=== PATIENT | male | born 1995 | race Caucasian/White ===

== ENCOUNTER 2017-06-11 10:02 | Emergency (ER) | payer SELFPAY | END 2017-06-11 11:44 | disposition home or self-care (01) | PROVIDERS: Emergency Provider Emergency Medicine; Family Provider Emergency Medicine; Visit Provider Emergency Medicine | DX: S00.83XA Contusion of other part of head, initial encounter (principal); S00.03XA Contusion of scalp, initial encounter; S16.1XXA Strain of muscle, fascia and tendon at neck level, initial encounter; F84.0 Autistic disorder; F79 Unspecified intellectual disabilities; W01.0XXA Fall on same level from slipping, tripping and stumbling without subsequent striking against object, initial encounter; Y92.199 Unspecified place in other specified residential institution as the place of occurrence of the external cause | CPT/HCPCS: 70450; 72125; 99282 ==

== ENCOUNTER 2017-06-22 09:52 | Emergency (ER) | payer BC, SELFPAY ==
[2017-06-22 09:54] VITALS: BP 127/72; PULSE 96; RESP 18; TEMP 36.8; O2SAT 99; BMI 22.4
--- NOTE | 2017-06-22 10:09 | HMH.EDGENADL ---
ED Disposition Clinical Impression: Autism Syncope Qualifiers: Syncope type: unspecified Qualified Code(s): R55 - Syncope and collapse Disposition: Home, Self-Care Condition on Discharge: Good Instructions: How to Prevent Falls Additional Instructions: Keep appointment with Neurology as previously scheduled to rule out seizure disorder Time of Disposition: 11:39 - Critical Care Critical Care Time: No Attestation: On , the high probability of a clinically significant, sudden or life threatening deterioration of the following system(s) required my full and direct attention, intervention and personal management. The time I documented below is in addition to time spent performing reported procedures but includes the following listed in this critical care notation. Medical Decision Making Vital Signs: 06/22/17 09:54 Temperature 98.2 F Temperature Source Oral Pulse Rate [Right Radial] 96 H Respiratory Rate 18 Blood Pressure [Right Arm] 127/72 Blood Pressure Mean [Right Arm] 90 Blood Pressure Source [Right Arm] Automatic Cuff Blood Pressure Position [Right Arm] Sitting 02 Sat by Pulse Oximetry 99 Oxygen Delivery Method Room Air - Lab Data Lab Results 06/22/17 10:33: WBC 5.5, RBC 4.46 L, Hgb 13.9 L, Hct 41.9 L, MCV 93.9, MCH 31.1, MCHC 33.2, RDW 15.2, Plt Count 190, MPV 8.9, Neut % (Auto) 69.5, Lymph % (Auto) 21.3, [place] % (Auto) 6.4, Eos % (Auto) 1.9, Baso % (Auto) 0.8, Neut # (Auto) 3.8, Lymph # (Auto) 1.2, [place] # (Auto) 0.4, Eos # (Auto) 0.1, Baso # (Auto) 0.1 06/22/17 10:33: Sodium 140, Potassium 4.5, Chloride 104, Carbon Dioxide 27, Anion Gap 13.5, BUN 11, Creatinine 0.90, Estimated Creat Clear 139, Estimated GFR > 60, Est GFR ( Amer) > 60, Glucose 73 L, Calcium 8.7, Total Bilirubin 0.9, AST 24, ALT 48, Alkaline Phosphatase 104, Total Creatine Kinase 60, Total Protein 6.4, Albumin 3.4, Globulin 3.0, Albumin/Globulin Ratio 1.1 Result diagrams: 06/22/17 10:33 06/22/17 10:33 - Joshua Inquiry Pt receiving controlled substance: No Joshua was queried for this patient: No General Adult HPI - General Chief complaint: Fall Stated complaint: fall Time Seen by Provider: 06/22/17 10:09 Mode of Arrival: EMS Source of Information: EMS (and report from [facility]) Limitations: Pt has history of Autism and is scheduled to be seen by Neurology in another week or two to rule out seizure disorder Description of Symptoms (Recalled from ER Triage Doc. by RN): [facility] just [facility] back eyes rolled back in head , and he jerked for approx 30 sec and drooled - History of Present Illness HPI narrative: Pt had an episode at [facility] where he is a resident where he reportedly fell, eyes rolled back and he jerked all over. He was here about a week or two ago for the same and had a CT of Head which was negative and he has an appointment with a Neurologist to rule out seizure disorder. He does appear to be a little post ictal at this time as he is subdued and he responds by repeating almost everything you say to him. He had no incontinence of urine or stool Onset (ago): hour(s) Location: head Radiation: non-radiation Severity: mild Severity scale (1-10): 2 Consistency: now resolved Exacerbating factors: none Associated symptoms: confusion, other (eyes rolled back and he jerked all over but no incontinence of urine or stool) - Related Data Home Medications Medication Instructions Recorded Confirmed No Known Home Medications [No 06/22/17 06/22/17 Known Home Medications] Allergies Allergy/AdvReac Type Severity Reaction Status Date / Time No Known Allergies Allergy Verified 06/22/17 10:06 [facility] History I have reviewed the patient's past medical history: Yes Medical History: Denies:: Diabetes Mellitus Type 1 - *Social History Smoking Status: Never smoker (patient has Autism) Alcohol Intake: never - Psychiatric History Expresses thoughts of harming self/others: None Suic
--- NOTE | 2017-06-22 10:16 | ED_ITS ---
ED Disposition Clinical Impression: Autism Syncope Qualifiers: Syncope type: unspecified Qualified Code(s): R55 - Syncope and collapse Disposition: Home, Self-Care Condition on Discharge: Good Instructions: How to Prevent Falls Additional Instructions: Keep appointment with Neurology as previously scheduled to rule out seizure disorder Time of Disposition: 11:39 - Critical Care Critical Care Time: No Attestation: On , the high probability of a clinically significant, sudden or life threatening deterioration of the following system(s) required my full and direct attention, intervention and personal management. The time I documented below is in addition to time spent performing reported procedures but includes the following listed in this critical care notation. Medical Decision Making Vital Signs: 06/22/17 09:54 Temperature 98.2 F Temperature Source Oral Pulse Rate [Right Radial] 96 H Respiratory Rate 18 Blood Pressure [Right Arm] 127/72 Blood Pressure Mean [Right Arm] 90 Blood Pressure Source [Right Arm] Automatic Cuff Blood Pressure Position [Right Arm] Sitting 02 Sat by Pulse Oximetry 99 Oxygen Delivery Method Room Air - Lab Data Lab Results 06/22/17 10:33: WBC 5.5, RBC 4.46 L, Hgb 13.9 L, Hct 41.9 L, MCV 93.9, MCH 31.1 , MCHC 33.2, RDW 15.2, Plt Count 190, MPV 8.9, Neut % (Auto) 69.5, Lymph % (Auto ) 21.3, [place] % (Auto) 6.4, Eos % (Auto) 1.9, Baso % (Auto) 0.8, Neut # (Auto) 3.8, Lymph # (Auto) 1.2, [place] # (Auto) 0.4, Eos # (Auto) 0.1, Baso # (Auto) 0.1 06/22/17 10:33: Sodium 140, Potassium 4.5, Chloride 104, Carbon Dioxide 27, Anion Gap 13.5, BUN 11, Creatinine 0.90, Estimated Creat Clear 139, Estimated GFR > 60, Est GFR ( Amer) > 60, Glucose 73 L, Calcium 8.7, Total Bilirubin 0.9, AST 24, ALT 48, Alkaline Phosphatase 104, Total Creatine Kinase 60, Total Protein 6.4, Albumin 3.4, Globulin 3.0, Albumin/Globulin Ratio 1.1 Result diagrams: 06/22/17 10:33 06/22/17 10:33 - Joshua Inquiry Pt receiving controlled substance: No Joshua was queried for this patient: No General Adult HPI - General Chief complaint: Fall Stated complaint: fall Time Seen by Provider: 06/22/17 10:09 Mode of Arrival: EMS Source of Information: EMS (and report from [facility]) Limitations: Pt has history of Autism and is scheduled to be seen by Neurology in another week or two to rule out seizure disorder Description of Symptoms (Recalled from ER Triage Doc. by RN): [facility] states he just fell back eyes rolled back in head , and he jerked for approx 30 sec and drooled - History of Present Illness HPI narrative: Pt had an episode at [facility] where he is a resident where he reportedly fell , eyes rolled back and he jerked all over. He was here about a week or two ago for the same and had a CT of Head which was negative and he has an appointment with a Neurologist to rule out seizure disorder. He does appear to be a little post ictal at this time as he is subdued and he responds by repeating almost everything you say to him. He had no incontinence of urine or stool Onset (ago): hour(s) Location: head Radiation: non-radiation Severity: mild Severity scale (1-10): 2 Consistency: now resolved Exacerbating factors: none Associated symptoms: confusion, other (eyes rolled back and he jerked all over but no incontinence of urine or stool) - Related Data Home Medications Medication Instructions Recorded
--- NOTE | 2017-06-22 10:36 | PC.NURSE ---
lab at obtaining blood
[2017-06-22 10:55] LABS: Basophils # 0.1 K/mm3 (0-0.2); Basophils % 0.8 % (0.1-2.0); Eosinophils # 0.1 K/mm3 (0.0-0.4); Eosinophils % 1.9 % (0.1-12.0); Hematocrit 41.9 % (42.0-52.0); Hemoglobin 13.9 g/dL (14.1-18.0); Lymphocytes # 1.2 K/mm3 (0.7-4.5); Lymphocytes % 21.3 K/mm3 (10-50); Mean Corpuscular HGB Conc 33.2 g/dL (31.8-35.4); Mean Corpuscular Hemoglobin 31.1 pg (27.0-31.2); Mean Corpuscular Volume 93.9 fl (80-94); Mean Platelet Volume 8.9 fl (7.4-10.4); Monocytes # 0.4 K/mm3 (0.1-1.0); Monocytes % 6.4 % (1.7-9.3); Neutrophils # 3.8 K/mm3 (1.8-7.8); Neutrophils % 69.5 % (37.0-80.0); Platelet Count 190 K/mm3 (142-424); Red Blood Count 4.46 M/mm3 (4.60-6.20); Red Cell Distribution Width 15.2 % (11.5-17.5); White Blood Count 5.5 K/mm3 (4.5-13.0)
[2017-06-22 11:05] LABS: Alanine Aminotransferase 48 U/L (12-78); Albumin Level 3.4 gm/dL (3.4-5.0); Albumin/Globulin Ratio 1.1 (1.1-1.8); Alkaline Phosphatase 104 U/L (46-116); Anion Gap 13.5 mEq/L (5-15); Aspartate Amino Transferase 24 U/L (15-37); Bilirubin,Total 0.9 mg/dL (0.2-1.0); Blood Urea Nitrogen 11 mg/dL (7-18); Calcium 8.7 mg/dL (8.5-10.1); Carbon Dioxide 27 mmol/L (21.0-32.0); Chloride 104 mmol/L (98-107); Creatine Kinase 60 U/L (39-308); Creatinine Clearance Estimated 139 mL/min (0-300); Estimated Glomerular Filt Rate > 60 ml/min (>60); GFR (African American) > 60 ML/MIN (>60); Glucose 73 mg/dL (74-106); Potassium 4.5 mmoL/L (3.5-5.1); Sodium 140 mmol/L (136-145); Total Protein,Serum 6.4 gm/dL (6.4-8.2)
[2017-06-22 11:51] VITALS: BP 140/90; PULSE 86; RESP 18; TEMP 36.7; O2SAT 98
== END 2017-06-22 12:07 | disposition home or self-care (01) ==
PROVIDERS: Emergency Provider General Practice; Family Provider Emergency Medicine; PCP Emergency Medicine
DX: R55 Syncope and collapse (principal); F84.0 Autistic disorder
CPT/HCPCS: 36415; 80053; 82550; 85025; 99282

== ENCOUNTER → 2017-07-30 09:23 | Outpatient (CLI) | payer BC, SELFPAY ==
--- NOTE | 2017-07-30 09:31 | CT_ITS ---
CT head/brain wo con HISTORY: Seizure disorder ORDERING PHYSICIAN: Shanti Jack MD PATIENT AGE: 21 years COMPARISON: None TECHNIQUE: Axial images obtained without contrast. Brain and bone windows reviewed. FINDINGS: No midline shift, mass effect, intracranial hemorrhage, hydrocephalus, or extra-axial fluid collection is evident. The calvarium has an unremarkable appearance. No mastoid effusion. No sinus air-fluid levels.. IMPRESSION: Negative CT head without contrast. No acute finding.
== END ==
PROVIDERS: Family Provider Emergency Medicine; PCP Emergency Medicine; Visit Provider Specialist
DX: G40.909 Epilepsy, unspecified, not intractable, without status epilepticus (principal)
CPT/HCPCS: 70450

== ENCOUNTER → 2017-09-09 12:12 | Outpatient (POV) | payer BC, SELFPAY | PROVIDERS: Family Provider Emergency Medicine; PCP Emergency Medicine; Visit Provider Specialist | DX: G40.909 Epilepsy, unspecified, not intractable, without status epilepticus (principal) | CPT/HCPCS: 95819 ==

== ENCOUNTER → 2019-02-11 08:13 | Outpatient (CLI) | payer BC, SELFPAY ==
[2019-02-11 09:35] LABS: Alanine Aminotransferase 27 U/L (12-78); Albumin Level 4.4 gm/dL (3.4-5.0); Albumin/Globulin Ratio 1.5 (1.1-1.8); Alkaline Phosphatase 71 U/L (46-116); Aspartate Amino Transferase 12 U/L (15-37); Bilirubin,Total 1.4 mg/dL (0.2-1.0); Blood Urea Nitrogen 11 mg/dL (7-18); Calcium 9.4 mg/dL (8.5-10.1); Carbon Dioxide 28 mmol/L (21.0-32.0); Chloride 103 mmol/L (98-107); Creatinine,Serum 0.97 mg/dL (0.70-1.30); Estimated Glomerular Filt Rate 97 ml/min (>60); GFR (African American) 117 ML/MIN (>60); Glucose 109 mg/dL (74-106); Sodium 140 mmol/L (136-145); Total Protein,Serum 7.4 gm/dL (6.4-8.2)
== END ==
PROVIDERS: Visit Provider Specialist
DX: G40.909 Epilepsy, unspecified, not intractable, without status epilepticus (principal)
CPT/HCPCS: 36415; 80053